=== PATIENT | female | born 1965 | race Caucasian/White ===

== ENCOUNTER → 2017-10-28 | Outpatient (CLI) | payer BC ==
--- NOTE | 2017-10-28 23:35 | CT ---
EXAMINATION TYPE: CT wrist LT wo con DATE OF EXAM: 10/28/2017 COMPARISON: None HISTORY: Fall 6 days ago with pain per patient. Intra-articular fracture of distal radius per order. CT DLP: 221 mGycm Automated exposure control for dose reduction was used. FINDINGS: Overlying fiberglass cast material is seen. There is comminuted acute intra-articular minimally displ aced fracture through the distal radial meta-epiphysis extending to radial and ulnar margins with onl y slight distraction identified, there is extension to the dorsal and volar surfaces with horizontal and vertical components. No significant step off at articular surface is identified. No tiny loose os sific bodies into carpal joint spaces is clearly seen. Distal ulna is intact. Radial ulnar articulation is maintained. Carpal joint spaces are preserved. No additional fractures seen. Base of metacarpals is unremarkable. IMPRESSION: ACUTE COMMINUTED MINIMALLY DISPLACED INTRA-ARTICULAR FRACTURE DISTAL RADIAL META-EPIPHYSIS DETAILE D ABOVE
== END | disposition home or self-care (01) ==
LOC: RADCTMAIN 19:09
PROVIDERS: ATTEND Orthopaedic Surgery
DX: S52.572A Other intraarticular fracture of lower end of left radius, initial encounter for closed fracture (principal); M25.521 Pain in right elbow

== ENCOUNTER → 2017-11-10 | Outpatient (CLI) | payer BC ==
--- NOTE | 2017-11-12 10:26 | MM ---
Reason for exam: screening (asymptomatic). Last mammogram was performed 7 years and 11 months ago. History: Patient is postmenopausal. Physical Findings: A clinical breast exam by your physician is recommended on an annual basis and results should be correlated with mammographic findings. MG Screening Mammo w CAD Bilateral CC and MLO view(s) were taken. Prior study comparison: December 13, 2009, bilateral digital screening mammogram. May 30, 2004, bilateral screening mammogram. There are scattered fibroglandular densities. Probable lymph node upper outer quadrant right breast. ASSESSMENT: Benign, BI-RAD 2 RECOMMENDATION: Routine screening mammogram of both breasts in 1 year.
== END | disposition home or self-care (01) ==
LOC: RADMAMWWP 13:13
PROVIDERS: ATTEND Family Medicine
DX: Z12.31 Encounter for screening mammogram for malignant neoplasm of breast (principal)
CPT/HCPCS: 77067

== ENCOUNTER → 2023-09-23 | Outpatient (CLI) | payer BC ==
--- NOTE | 2023-10-14 20:03 | MM ---
Reason for Exam: Screening (asymptomatic). Last mammogram was performed 5 year(s) and 10 month(s) ago. Patient History: Menarche at age 11. First Full-Term at age 21. Hysterectomy at age 50. Postmenopausal. Patient has history of breast feeding. Risk Values: Jacqui 5 year model risk: 1.3%. NCI Lifetime model risk: 7.7%. Prior Study Comparison: 05/30/2004 Bilateral Screening Mammogram, [facility]. 12/13/2009 Bilateral Screening Mammogram, [facility]. 11/10/2017 Bilateral Screening Mammogram, [facility]. Tissue Density: There are scattered areas of fibroglandular density. Findings: Analyzed By CAD. Chronic nodularity on the right. There is no suspicious group of microcalcifications or new suspicious mass in either breast. Overall Assessment: Benign, BI-RAD 2 Management: Screening Mammogram of both breasts in 1 year. . Patient should continue monthly self-breast exams. A clinical breast exam by your physician is recommended on an annual basis. This exam should not preclude additional follow-up of suspicious palpable abnormalities. Note on Jacqui scores and lifetime risk: 1. A Jacqui score greater than 3% is considered moderate risk. If this is the case, consider specialist referral to assess eligibility for a risk reducing agent. 2. If overall lifetime risk for the development of breast cancer is 20% or higher, the patient may qualify for future screening with alternating mammogram and breast MRI. Electronically signed and approved by: Jessee Martinez M.D. Radiologist
== END | disposition home or self-care (01) ==
LOC: RADMAMWWP 12:00
PROVIDERS: ATTEND Family Medicine
DX: Z12.31 Encounter for screening mammogram for malignant neoplasm of breast
CPT/HCPCS: 77063; 77067

== ENCOUNTER 2024-01-24 10:29 | Day surgery (SDC) | payer BC ==
[~2024-01-24 10:29] MED LIST: LACTATED RINGERS 1,000 ML IV SCH
[2024-01-24 10:55] VITALS: TEMP 96.9
[2024-01-24] MEDS: IV FLUID CONTINUATION 1,000 ML IV ONE ×2 (11:00→11:01)
[2024-01-24] MEDS ORDERED: LIDOCAINE 1% INJ 10MG/ML (20 ML MDV) ONE (11:02)
[2024-01-24] MEDS ORDERED: PROPOFOL 10 MG/ML 20 ML VIAL IV ONE (11:02)
--- NOTE | 2024-01-24 11:22 | P.PCN ---
Date of Procedure: 01/24/24 Preoperative Diagnosis: Screening Postoperative Diagnosis: Internal/external hemorrhoid Procedure(s) Performed: Colonoscopy Anesthesia: MAC Surgeon: Harper Choi Pathology: none sent Condition: stable Disposition: same day Indications for Procedure: 58-year-old female presents today for screening colonoscopy. Denies any blood in her stool. Denies family history of colon cancer. Risks, benefits and alternatives were discussed with the patient. Operative Findings: Overall normal-appearing colon with internal hemorrhoids Description of Procedure: The patient was brought to the endoscopy suite and placed in left lateral decubitus position and adequate sedation was achieved using conscious sedation. Digital rectal exam was performed and mild internal hemorrhoids were palpated. An endoscope was then placed in the rectum and advanced to the cecum as identified by landmarks including the appendiceal orifice and the ileocecal valve. The prep was good. The colonoscope was then slowly withdrawn, examining for any mucosal abnormalities. The cecum, ascending, transverse, descending and sigmoid colon were visualized adequately. There were no large neoplastic lesions noted throughout the colon. No obvious polyps noted throughout the co romel. No significant evidence of diverticulosis. Hemostasis was maintained. Retroflexion was performed in the rectum and internal hemorrhoids. Excess air was removed, the colonoscope withdrawn and the procedure terminated. The patient was then transferred to the recovery unit in stable condition. Repeat colonoscopy should be performed in 8-10 years.
[2024-01-24 11:45] VITALS: BP 118/72; PULSE 80; RESP 17
== END 2024-01-24 12:10 | disposition home or self-care (01) ==
LOC: ORWHC2ENDO 10:29
PROVIDERS: ATTEND Surgery
DX: Z12.11 Encounter for screening for malignant neoplasm of colon (principal); K64.4 Residual hemorrhoidal skin tags; K64.8 Other hemorrhoids; Z90.710 Acquired absence of both cervix and uterus; Z98.890 Other specified postprocedural states
CPT/HCPCS: 45378; J2003; J2704